=== PATIENT | male | born 1950 | race Asian ===

== ENCOUNTER 2021-09-07 23:01 | Inpatient (IN) | payer MEDICAID ==
[~2021-09-07] VITALS: Ht 165.1 cm; Wt 63.5 kg
--- NOTE | 2021-09-07 23:10 | NUR ---
PT BIB DAUGHTER WITH C/O CHEST TIGHTNESS WHICH STARTED AT 2200. PT HAD QUADRUPLE BY PASS ON 08/16. PER PT, THE TIGHTNESS HAS NOW RESOLVED. PT IS AAO X 4, NO SIGN OF ACUTE DISTRESS NOTED, SATURATION 99% ON ROOM AIR. PATIENT WAS SEEN AND EXAMINED BY DR ABEBE. PT ATTACHED TO MONITOR AND PULSE OX. WILL CONTINUE TO MONITOR AND CARRY OUT MD ORDERS.
[2021-09-07] MEDS ORDERED: ASPIRIN 325 MG TABLET ONE (23:25)
[2021-09-07] MEDS ORDERED: ASPIRIN 325 MG TABLET PO ONE (23:30)
--- NOTE | 2021-09-07 23:30 | NUR ---
IV LINE ESTABLISHED AT L HAND 20G BY LARISA BOYER. BLOOD DRAWN AND SENT TO LAB. COVID ANTIGEN SWAB DONE AND SENT TO LAB
--- NOTE | 2021-09-07 23:53 | NUR ---
XRAY AT BEDSIDE
[2021-09-08 00:31] LABS: ALANINE AMINOTRANSFERASE 42 U/L (12-78); ALBUMIN 3.4 g/dL (3.4-5.0); ALKALINE PHOSPHATASE 100 U/L (46-116); ASPARTATE AMINOTRANSFERASE 21 U/L (15-37); BILIRUBIN,DIRECT 0.1 mg/dL (0.0-0.2); BILIRUBIN,TOTAL 0.4 mg/dL (0.2-1.0); CALCIUM, SERUM 8.8 mg/dL (8.5-10.1); CARBON DIOXIDE 27 mmol/L (21-32); CHLORIDE 102 mmol/L (98-107); CREATININE 0.8 mg/dL (0.6-1.3); GLUCOSE 152 mg/dL (74-106); SODIUM SERUM 139 mmol/L (136-145); TOTAL PROTEIN, SERUM 7.2 g/dL (6.4-8.2); UREA NITROGEN, BLOOD 24 mg/dL (7-18)
[2021-09-08 00:45] LABS: BASOPHILS # (AUTO) 0.1 K/uL (0.0-0.2); BASOPHILS % (AUTO) 1.1 % (0.0-2.0); EOSINOPHILS % (AUTO) 9.1 % (0.0-6.0); HEMATOCRIT 32 % (39-51); HEMOGLOBIN 10.3 g/dL (13.5-17.5); LYMPHOCYTES # (AUTO) 1.4 K/uL (0.8-4.8); LYMPHOCYTES % (AUTO) 17.7 % (20.0-44.0); MEAN CORPUSCULAR HGB CONC 33 g/dl (31.0-36.0); MEAN CORPUSCULAR VOLUME 91 fL (80-96); MONOCYTES # (AUTO) 0.6 K/uL (0.1-1.30); MONOCYTES % (AUTO) 7.8 % (2.0-12.0); NEUTROPHILS # (AUTO) 5.2 K/uL (1.8-8.9); NEUTROPHILS % (AUTO) 64.3 % (43.0-81.0); PLATELET COUNT (AUTO) 272 K/uL (150-450); RED BLOOD CELL COUNT(AUTO) 3.49 MIL/uL (4.5-6.0); WHITE BLOOD COUNT (AUTO) 8.1 K/uL (4.3-11.0)
[2021-09-08] MEDS ORDERED: NITROGLYCERIN 0.4 MG/TAB BOTTLE SL PRN (01:30)
[2021-09-08] MEDS ORDERED: ACETAMINOPHEN 325 MG TABLET PO PRN (01:30)
[2021-09-08] MEDS ORDERED: ONDANSETRON HCL/PF 4 MG/2 ML VIAL IVP PRN (01:30)
[2021-09-08] MEDS ORDERED: MAG HYDROX/AL HYDROX/SIMETH 30 ML UDC PO PRN (01:30)
[2021-09-08] MEDS ORDERED: MORPHINE SULFATE INJ 2 MG/ML DISP.SYRIN IV PRN (01:30)
[2021-09-08] MEDS ORDERED: DOCUSATE SODIUM 100 MG CAPSULE PO PRN ×2 (01:30→09:30)
--- NOTE | 2021-09-08 01:32 | NUR ---
REPORT GIVEN TO BAR AND FILLER ASSEMBLERROSALIND ROWLEY FOR IVÁN
[2021-09-08 01:50] VITALS: BP 109/64
--- NOTE | 2021-09-08 01:50 | NUR ---
PT TRANSFERRED TO TELE 326-2 VIA ACLS PROTOCOL IN STABLE CONDITION.
--- NOTE | 2021-09-08 01:55 | NUR ---
RN NOTES RECEIVED PATIENT FROM ER WITH DX. OF CHEST PAIN, A/OX4, FAMILY AT BEDSIDE, SR ON TELE MONITOR, HR-68, ADMISSION INSTRUCTION WAS RENDERED, SKIN ASSESSMENT DONE, DENIES PAIN, NO SOB, CALL LIGHT WITHIN REACH, [id number], WILL CONTINUE TO MONITOR
[2021-09-08] MEDS ORDERED: OMEP20CA15 PO (03:29)
[2021-09-08] MEDS ORDERED: SENN-261 PO (03:29)
[2021-09-08] MEDS ORDERED: DOCU-141 PO (03:29)
[2021-09-08] MEDS ORDERED: METO25TA6 PO (03:29)
[2021-09-08] MEDS ORDERED: ATOR80TA PO (03:29)
[2021-09-08] MEDS ORDERED: METF-440 PO (03:29)
[2021-09-08] MEDS ORDERED: ASPI-1169 PO (03:29)
[2021-09-08 04:00] VITALS: BP 111/72
--- NOTE | 2021-09-08 06:33 | NUR ---
RN NOTES SLEEPING BUT AROUSABLE, DENIES PAIN, NO SOB, CALL LIGHT WITHIN REACH, [id number], PT. NEEDS ATTENDED
[2021-09-08 06:43] LABS: BASOPHILS # (AUTO) 0.1 K/uL (0.0-0.2); BASOPHILS % (AUTO) 1.1 % (0.0-2.0); EOSINOPHILS % (AUTO) 10.3 % (0.0-6.0); HEMATOCRIT 31 % (39-51); HEMOGLOBIN 10.3 g/dL (13.5-17.5); LYMPHOCYTES # (AUTO) 1.6 K/uL (0.8-4.8); LYMPHOCYTES % (AUTO) 24.7 % (20.0-44.0); MEAN CORPUSCULAR HGB CONC 33 g/dl (31.0-36.0); MEAN CORPUSCULAR VOLUME 90 fL (80-96); MONOCYTES # (AUTO) 0.6 K/uL (0.1-1.30); MONOCYTES % (AUTO) 9.5 % (2.0-12.0); NEUTROPHILS # (AUTO) 3.6 K/uL (1.8-8.9); NEUTROPHILS % (AUTO) 54.4 % (43.0-81.0); PLATELET COUNT (AUTO) 265 K/uL (150-450); WHITE BLOOD COUNT (AUTO) 6.7 K/uL (4.3-11.0)
[2021-09-08 07:07] LABS: ALBUMIN 3.3 g/dL (3.4-5.0); BILIRUBIN,TOTAL 0.4 mg/dL (0.2-1.0); CALCIUM, SERUM 8.8 mg/dL (8.5-10.1); CREATININE 0.8 mg/dL (0.6-1.3); MAGNESIUM 2.5 mg/dL (1.8-2.4); PHOSPHORUS 4.4 mg/dL (2.5-4.9); TOTAL PROTEIN, SERUM 6.9 g/dL (6.4-8.2)
--- NOTE | 2021-09-08 07:30 | NUR ---
MS RN OPENING NOTES RECEIVED PATIENT AWAKE ON BED AND A/O X4. NO SOB NOTED. NOT IN DISTRESS. WITH NO COMPLAINTS OF PAIN OR DISCOMFORT AT THIS TIME. WITH IV ACCESS AT RIGHT HAND G20, SALINE LOCKED, PATENT AND INTACT. SAFETY MEASURES IN PLACED. CALL LIGHT WITHIN REACH. BED ON LOWEST LOCKED POSITION, SIDE RAILS UP X2. WILL CONTINUE TO MONITOR.
[2021-09-08 08:00] VITALS: BP 96/59
[2021-09-08] MEDS ORDERED: ASPIRIN 81 MG TAB.CHEW PO SCH (09:00)
[2021-09-08] MEDS ORDERED: ENOXAPARIN SODIUM 60 MG/0.6 ML DISP.SYRIN SQ SCH (09:00)
[2021-09-08] MEDS ORDERED: SENNOSIDES 8.6 MG TABLET PO PRN (09:30)
[2021-09-08 10:36] LABS: THYROID STIMULATING HORMONE 1.458 uIU/mL (0.358-3.74)
[2021-09-08 12:00] VITALS: BP 98/66
[2021-09-08 16:00] VITALS: BP 88/54
[2021-09-08 16:41] VITALS: BP 88/54
[2021-09-08] MEDS ORDERED: METOPROLOL TARTRATE 25 MG TABLET PO SCH (17:00)
[2021-09-08] MEDS ORDERED: METFORMIN 500 MG TABLET PO SCH (17:00)
--- NOTE | 2021-09-08 19:03 | NUR ---
MS RN CLOSING NOTES PATIENT AWAKE ON BED AND A/O X4. NO SOB NOTED. NOT IN DISTRESS. WITH NO COMPLAINTS OF PAIN OR DISCOMFORT AT THIS TIME. WITH IV ACCESS AT RIGHT HAND G20, SALINE LOCKED, PATENT AND INTACT. DUE MEDS GIVEN. SAFETY MEASURES IN PLACED. CALL LIGHT WITHIN REACH. BED ON LOWEST LOCKED POSITION, SIDE RAILS UP X2. WILL ENDORSE TO NEXT SHIFT FOR IVÁN.
--- NOTE | 2021-09-08 19:50 | NUR ---
RN NOTES PATIENT WILL BE DISCHARGE TONIGHT, DISCHARGE INSTRUCTIONS WAS GIVEN, FAMILY AT BEDSIDE AND UNDERSTOOD THE INSTRUCTION
--- NOTE | 2021-09-08 19:57 | NUR ---
RN NOTES PATIENT LEFT WITH FAMILY VIA PRIVATE CAR, NOT IN DISTRESS, DENIES PAIN, ELECT[employer]IC [employer] OFFICER WHEEL DOWN THE PATIENT, PATIENT LEFT ON STABLE CONDITION
[2021-09-08] MEDS ORDERED: SIMVASTATIN 20 MG TABLET PO SCH (22:00)
[2021-09-09] MEDS ORDERED: ATORVASTATIN 40 MG TABLET PO SCH (09:00)
[2021-09-09] MEDS ORDERED: ASPIRIN 81 MG TAB.CHEW PO SCH (09:00)
[2021-09-09] MEDS ORDERED: PANTOPRAZOLE 40 MG TABLET.DR PO SCH (09:00)
== END 2021-09-08 19:57 | disposition home or self-care (01) | DRG 198 ==
LOC: ER 23:06 → TELE 09-08 01:18
PROVIDERS: ADMIT Internal Medicine; ATTEND Internal Medicine
DX: I25.119 Atherosclerotic heart disease of native coronary artery with unspecified angina pectoris (principal); E43 Unspecified severe protein-calorie malnutrition; Z95.1 Presence of aortocoronary bypass graft; E11.9 Type 2 diabetes mellitus without complications; I10 Essential (primary) hypertension; E78.5 Hyperlipidemia, unspecified
CPT/HCPCS: 36415; 71045-TC; 80048-TC; 80053-TC; 80076-TC; 83735-TC; 83880; 84100-TC; 84443-TC; 84484-TC; 85025-TC; 85730-TC; 87081-TC; 93307-TC; C9803; G0378; J1650

== ENCOUNTER 2024-01-09 11:24 | Emergency (ER) | payer MEDICAID, OTHER ==
[~2024-01-09] VITALS: Ht 162.6 cm; Wt 54.4 kg
[~2024-01-09 11:24] MED LIST: ASPI-1169 PO; ATOR80TA PO; DOCU-141 PO; METF-440 PO; METO25TA6 PO; OMEP20CA15 PO; SENN-261 PO
[2024-01-09] MEDS ORDERED: ACETAMINOPHEN ES 500 MG TABLET ONE (12:02)
[2024-01-09] MEDS: ACETAMINOPHEN ES 500 MG TABLET PO ONE (12:03)
[2024-01-09] MEDS ORDERED: GELATIN SPONGE,ABSORBABLE 1 EA SPONGE TP ONE (13:26)
[2024-01-09] MEDS ORDERED: CEPH500C2 PO (13:35)
[2024-01-09] MEDS ORDERED: CEPHALEXIN MONOHYDRATE 500 MG CAPSULE PO ONE (13:37)
[2024-01-09] MEDS: CEPHALEXIN MONOHYDRATE 500 MG CAPSULE PO ONE (13:45)
[2024-01-09 13:46] VITALS: BP 128/68; TEMP 97.8; O2SAT 98
== END 2024-01-09 13:46 | disposition home or self-care (01) ==
LOC: ER 11:29
DX: S62.525A Nondisplaced fracture of distal phalanx of left thumb, initial encounter for closed fracture (principal); S80.211A Abrasion, right knee, initial encounter; I10 Essential (primary) hypertension; E11.9 Type 2 diabetes mellitus without complications; W01.0XXA Fall on same level from slipping, tripping and stumbling without subsequent striking against object, initial encounter; Y93.01 Activity, walking, marching and hiking; Y92.480 Sidewalk as the place of occurrence of the external cause; Y99.8 Other external cause status
CPT/HCPCS: 29130; 73130; 73564; 99284; A6403

== ENCOUNTER 2025-02-15 18:17 | Emergency (ER) | payer OTHER ==
[~2025-02-15] VITALS: Ht 165.1 cm; Wt 55.8 kg
[~2025-02-15 18:17] MED LIST changes: +CEPH500C2 PO
[2025-02-15] MEDS ORDERED: TIZA4TAB5 PO (19:24)
[2025-02-15 19:44] VITALS: BP 124/69; TEMP 98.3; O2SAT 98
[2025-02-15] MEDS ORDERED: METHOCARBAMOL (750MG) 750 MG TABLET PO SCH (20:00)
== END 2025-02-15 19:44 | disposition home or self-care (01) ==
LOC: ER 18:28
DX: M54.2 Cervicalgia (principal); E11.9 Type 2 diabetes mellitus without complications; E78.5 Hyperlipidemia, unspecified; I10 Essential (primary) hypertension; Z79.82 Long term (current) use of aspirin; Z79.84 Long term (current) use of oral hypoglycemic drugs; Z79.899 Other long term (current) drug therapy; Z86.79 Personal history of other diseases of the circulatory system

== ENCOUNTER 2025-09-10 10:12 | Emergency (ER) | payer OTHER ==
[~2025-09-10] VITALS: Ht 165.1 cm; Wt 55.8 kg
[~2025-09-10 10:12] MED LIST changes: +TIZA4TAB5 PO
[2025-09-10 10:23] VITALS: BP 130/70; TEMP 98.2
[2025-09-10] MEDS ORDERED: ACETAMINOPHEN ES 500 MG TABLET ONE (10:38)
[2025-09-10] MEDS: ACETAMINOPHEN ES 500 MG TABLET PO ONE (10:42)
[2025-09-10 12:06] VITALS: O2SAT 99
== END 2025-09-10 12:10 | disposition home or self-care (01) ==
LOC: ER 10:12
DX: M25.511 Pain in right shoulder (principal); M75.01 Adhesive capsulitis of right shoulder; I11.9 Hypertensive heart disease without heart failure; E11.9 Type 2 diabetes mellitus without complications; Z79.82 Long term (current) use of aspirin; Z79.84 Long term (current) use of oral hypoglycemic drugs; Z79.899 Other long term (current) drug therapy
CPT/HCPCS: 73030-TC